=== PATIENT | male | born 1960 | race Caucasian/White ===

== ENCOUNTER 2020-05-23 23:53 | Inpatient (IN) | payer OTHER ==
[2020-05-24] VITALS (17 sets, daily range): BP systolic 122–253; BP diastolic 62–130
[2020-05-24] MEDS ORDERED: hydrALAZINE 20MG/ML 1ML VIAL (J0360 PER 20MG) IV ONE (04:20)
[2020-05-24] MEDS ORDERED: ACETAMINOPHEN TAB 650MG DOSE (2X325MG) PO PRN (04:20)
[2020-05-24 04:59] LABS: HEMATOCRIT 31.6 % (42.0-52.0); MEAN CORPUSCULAR HEMOGLOBIN 31.7 pg (27.0-33.0); MEAN CORPUSCULAR HGB CONC 31.6 g/dl (32.0-36.5); MEAN CORPUSCULAR VOLUME 100.3 fl (80.0-96.0); PLATELET COUNT, AUTOMATED 303 10^3/uL (150-450); RED BLOOD COUNT 3.15 10^6/uL (4.30-6.10); WHITE BLOOD COUNT 8.6 10^3/uL (4.0-10.0)
[2020-05-24] MEDS ORDERED: hydrALAZINE 20MG/ML 1ML VIAL (J0360 PER 20MG) IV PRN (05:00)
[2020-05-24 05:06] LABS: ABG BASE EXCESS -1.5 (-2.0-2.0); ABG HCO3 23.9 MEQ/L (22.0-26.0); ABG O2 SATURATION 93.2 % (95.0-99.0); ABG PARTIAL PRESSURE CO2 42.7 mmHg (35.0-45.0); ABG PARTIAL PRESSURE O2 74.3 mmHg (75.0-100.0); ABG STANDARD HCO3 23.2 MEQ/L (22.0-26.0); ABG TOTAL CO2 25.2 MEQ/L (23.0-31.0); ABG pH (ARTERIAL) 7.365 UNITS (7.350-7.450)
[2020-05-24] MEDS ORDERED: IPRATROPIUM 0.5MG/ALBUTEROL 2.5MG INH SOL UD 3ML (DUONEB) NEB PRN (05:20)
[2020-05-24 05:25] LABS: ALBUMIN 2.8 GM/DL (3.2-5.2); BILIRUBIN,TOTAL 0.5 MG/DL (0.2-1.0); CALCIUM LEVEL 8.8 MG/DL (8.8-10.2); CREATININE FOR GFR 2.58 MG/DL (0.70-1.30); GLOMERULAR FILTRATION RATE 27.1 (>49); POTASSIUM SERUM 3.9 MEQ/L (3.5-5.1); TOTAL PROTEIN 6.5 GM/DL (6.4-8.2)
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
[2020-05-24] MEDS ORDERED: GLUCOSE 4GM CHEW TABLET PO PRN (05:35)
[2020-05-24] MEDS ORDERED: GLUCAGON INJ 1MG VIAL SC PRN (05:35)
[2020-05-24] MEDS ORDERED: DEXTROSE 50% 50 ML SYRINGE IV PRN (05:35)
[2020-05-24] MEDS ORDERED: LISI20TA33 PO (05:51)
[2020-05-24] MEDS ORDERED: METO25TA PO (05:51)
[2020-05-24] MEDS ORDERED: MIRT-60 PO (05:51)
[2020-05-24] MEDS ORDERED: HEPARIN SOD (PORCINE) 5000UNITS/ML 1ML VIAL/SYRINGE SC SCH (06:00)
[2020-05-24] MEDS: FUROSEMIDE 100MG/10ML VIAL (J1940) IV SCH ×3 (06:06→21:00)
[2020-05-24] MEDS ORDERED: DULO1CAP4 PO (06:07)
[2020-05-24] MEDS ORDERED: PANT40TA29 PO (06:07)
[2020-05-24] MEDS ORDERED: VITMTA PO (06:07)
[2020-05-24] MEDS ORDERED: [UNRECOGNIZED DRUG - CODE] PO (06:07)
[2020-05-24] MEDS ORDERED: NITR4TASL SL (06:07)
[2020-05-24] MEDS ORDERED: BUSP5TA PO (06:07)
[2020-05-24] MEDS ORDERED: SENN1TAB41 PO (06:07)
[2020-05-24] MEDS ORDERED: LABE200T32 PO (06:07)
[2020-05-24] MEDS ORDERED: FISH1000 PO (06:07)
[2020-05-24] MEDS ORDERED: HYDR50TA PO (06:07)
[2020-05-24] MEDS ORDERED: EZET10TA21 PO (06:07)
[2020-05-24] MEDS ORDERED: TREL1AER INH (06:07)
[2020-05-24] MEDS ORDERED: ATOR80TA59 PO (06:07)
[2020-05-24] MEDS ORDERED: VITA200030 PO (06:07)
[2020-05-24] MEDS ORDERED: PROAAER10 INH (06:07)
[2020-05-24] MEDS ORDERED: CLONI1TA PO (06:07)
[2020-05-24] MEDS ORDERED: ASPI-161 PO (06:07)
[2020-05-24] MEDS ORDERED: BACL10TA2 PO (06:07)
[2020-05-24] MEDS ORDERED: ELIQ2.5T PO (06:07)
[2020-05-24] MEDS ORDERED: FURO80TA2 PO (06:07)
[2020-05-24] MEDS ORDERED: CLON0.5T2 PO (06:07)
--- NOTE | 2020-05-24 06:11 | REPVR ---
PROCEDURE INFORMATION: Exam: XR Chest Exam date and time: 05/24/2020 4:40 AM Age: 59 years old Clinical indication: Shortness of breath TECHNIQUE: Imaging protocol: XR of the chest. Views: 1 view. COMPARISON: No relevant prior studies available. FINDINGS: Lungs: Left base retrocardiac airspace opacity. Scattered bilateral pulmonary nodules. Pleural spaces: Unremarkable. No pleural effusion. No pneumothorax. Heart/Mediastinum: Cardiomegaly. Bones/joints: Multilevel degenerative disease of the thoracic spine IMPRESSION: Left base retrocardiac airspace opacity. Scattered bilateral pulmonary nodules. Electronically signed by: River Stewart On 05/24/2020 06:11:23 AM
[2020-05-24] MEDS ORDERED: PATIENT COMMENT (06:18)
[2020-05-24] MEDS: HumaLOG INSULIN (NovoLOG) PER UNIT SC SCH ×4 (07:42→20:58)
[2020-05-24] MEDS ORDERED: ALBUTEROL 90 MCG/ACT 8GM HFA INHALER INH PRN (07:50)
[2020-05-24] MEDS ORDERED: NITROGLYCERIN 0.4 MG SUBL TABLET SL PRN (07:50)
[2020-05-24] MEDS: LABETALOL 200 MG TAB PO SCH ×2 (08:15→20:58)
[2020-05-24] MEDS: DOCUSATE SODIUM 100MG CAPSULE PO SCH ×2 (08:15→20:56)
[2020-05-24] MEDS: busPIRone 5 MG TAB PO SCH ×3 (08:16→20:57)
[2020-05-24] MEDS: cloNIDine 0.1MG TABLET PO SCH ×2 (08:16→20:58)
[2020-05-24] MEDS: SENOKOT S TAB PO SCH (08:16)
[2020-05-24] MEDS: ASPIRIN 81MG ENTERIC TABLET PO SCH (08:16)
[2020-05-24] MEDS: BACLOFEN 10 MG TAB PO SCH ×2 (08:16→20:57)
[2020-05-24] MEDS: MULTIVITAMINS/MINERALS THERAP 1 TAB PO SCH (08:16)
[2020-05-24] MEDS: **hydrALAZINE** 50 MG TAB PO SCH ×3 (08:16→20:57)
[2020-05-24] MEDS: metOLazone 2.5 MG TAB PO SCH (08:38)
[2020-05-24] MEDS: APIXABAN 2.5 MG TAB (ELIQUIS) PO SCH ×2 (08:38→20:56)
[2020-05-24] MEDS: clonazePAM 0.5 MG TAB PO SCH ×3 (08:38→20:57)
[2020-05-24] MEDS: FERROUS GLUCONATE 324 MG TAB PO SCH ×2 (08:39→20:56)
[2020-05-24] MEDS ORDERED: PANTOPRAZOLE 40MG VIAL (C9113 PER 1) IV SCH (09:00)
--- NOTE | 2020-05-24 11:40 | IPNPDOC ---
Text Note Date of Service The patient was seen on 05/24/20. NOTE Subjective: Patient stated that his breathing markedly improved, currently his on the 2 L via nasal cannula. Objective: GENERAL APPEARANCE: NAD HEENT: no scleral icterus, plus JVD, EOMI CARDIOVASCULAR: Irregularly irregular LUNGS: Diminished lung sounds bilaterally ABDOMEN: soft & not tender w palpitation MUSCULOSKELETAL: +3 pitting edema bilaterally INTEGUMENT: no generalized pallor NEUROLOGICAL: cranial nerve function from 2-12 intact intact, follows commands, speech not dysarthric Assessment plan Patient is 59 years old male with past history of atrial fibrillation, coronary artery diseases, COPD, chronic kidney diseases, diabetes, hypertension presented hospital with increased shortness of breath secondary to CHF exacerbation. Acute hypoxemic respiratory failure Secondary to acute on chronic CHF exacerbation Continue oxygen by nasal cannula ABG was on in the morning and showed pH 7.3, CO2 42.7 PaO2 74.3 Acute on chronic CHF exacerbation Await echo BNP 19917 I's and O's Continue Lasix IV 60 mg daily Fluid restriction to 1500 mL Hypertensive urgency/HTN In the mornings his systolic blood pressure was 195 After morning pills blood pressure stable and normalized Continue home cardioprotective medication Atrial fibrillation Heart rate under control Continue oral targeted anti-Coblation COPD Lungs clear on the auscultation Not in acute exacerbation Continue inhalers Coronary artery diseases Continue cardioprotective medication Type 2 diabetes Diabetes diet Insulin sliding scale Glucose level under control Acute on chronic kidney failure Creatinine 2.5 Lisinopril on hold Continue to monitor Obstructive sleep apnea BiPAP overnight with home settings VS,Fishbone, I+O VS, Fishbone, I+O Laboratory Tests 05/24/20 04:47 05/24/20 04:48 Vital Signs Date Time Temp Pulse Resp B/P (MAP) Pulse Ox O2 Delivery O2 Flow Rate FiO2 05/24/20 09:00 100 20 131/70 (90) 93 Nasal Cannula 2.0 05/24/20 08:00 97.9 I&O- Last 24 Hours up to 6 AM 05/24/20 06:00 Intake Total 0 ml Output Total 300 ml Balance -300 ml BREN LOPEZ DO May 24, 2020 11:40
[2020-05-24] MEDS: MIRTAZAPINE 15 MG TAB PO SCH (20:56)
[2020-05-24] MEDS: ATORVASTATIN 20 MG TAB PO SCH (20:56)
[2020-05-24] MEDS: EZETIMIBE 10 MG TAB (ZETIA) PO SCH (20:57)
[2020-05-24] MEDS: DULoxetine 20 MG CAP (CYMBALTA) PO SCH (20:57)
[2020-05-25] MEDS: FUROSEMIDE 100MG/10ML VIAL (J1940) IV SCH ×3 (05:11→21:01)
[2020-05-25 06:00] VITALS: BP 148/70
[2020-05-25] MEDS: DOCUSATE SODIUM 100MG CAPSULE PO SCH ×2 (08:57→20:46)
[2020-05-25] MEDS: clonazePAM 0.5 MG TAB PO SCH ×3 (08:57→20:52)
[2020-05-25] MEDS: APIXABAN 2.5 MG TAB (ELIQUIS) PO SCH ×2 (08:57→20:51)
[2020-05-25] MEDS: busPIRone 5 MG TAB PO SCH ×3 (08:57→20:51)
[2020-05-25] MEDS: SENOKOT S TAB PO SCH (08:57)
[2020-05-25] MEDS: FERROUS GLUCONATE 324 MG TAB PO SCH ×2 (08:57→20:48)
[2020-05-25] MEDS: MULTIVITAMINS/MINERALS THERAP 1 TAB PO SCH (08:57)
[2020-05-25] MEDS: BACLOFEN 10 MG TAB PO SCH ×2 (08:57→20:51)
[2020-05-25] MEDS: ASPIRIN 81MG ENTERIC TABLET PO SCH (08:57)
[2020-05-25] MEDS: PANTOPRAZOLE 40MG TAB (PROTONIX) PO SCH (08:57)
[2020-05-25] MEDS: **hydrALAZINE** 50 MG TAB PO SCH ×3 (09:02→20:50)
[2020-05-25] MEDS: cloNIDine 0.1MG TABLET PO SCH ×2 (09:03→20:52)
[2020-05-25] MEDS: HumaLOG INSULIN (NovoLOG) PER UNIT SC SCH ×4 (09:04→20:52)
[2020-05-25 09:17] LABS: BASO # 0.1 10^3/uL (0.0-0.2); BASO % 0.6 % (0.0-1.0); EOS # 0.2 10^3/uL (0.0-0.5); EOS % 1.6 % (0.0-3.0); HEMOGLOBIN 9.2 g/dl (13.5-17.5); LYMPH # 1.4 10^3/uL (1.5-5.0); LYMPH % 10.7 % (24.0-44.0); MEAN CORPUSCULAR HEMOGLOBIN 31.1 pg (27.0-33.0); MEAN CORPUSCULAR HGB CONC 31.7 g/dl (32.0-36.5); MONO # 0.7 10^3/uL (0.0-0.8); MONO % 5.7 % (2.0-8.0); NEUTROPHILS # 10.3 10^3/uL (1.5-8.5); NEUTROPHILS % 80.9 % (36.0-66.0); PLATELET COUNT, AUTOMATED 331 10^3/uL (150-450); RED BLOOD COUNT 2.96 10^6/uL (4.30-6.10); WHITE BLOOD COUNT 12.7 10^3/uL (4.0-10.0)
[2020-05-25 09:52] LABS: ALBUMIN 2.9 GM/DL (3.2-5.2); BILIRUBIN,TOTAL 0.5 MG/DL (0.2-1.0); CREATININE FOR GFR 2.53 MG/DL (0.70-1.30); GLOMERULAR FILTRATION RATE 27.7 (>49); MAGNESIUM LEVEL 1.9 MG/DL (1.8-2.4)
--- NOTE | 2020-05-25 10:23 | ECHO ---
DATE OF PROCEDURE: 05/24/2020 Age: 59 Gender: Male Height: 170 cm Weight: 108 kg REFERRING PHYSICIAN: Ken Wagner MD. INDICATION: Congestive heart failure. MEASUREMENTS: IVS 1.3 cm LV 5.3 cm LVPW 1.3 cm LA 4.4 cm Aorta 3.3 cm FINDINGS: This study is of acceptable technical quality. The patient is in atrial fibrillation with controlled rate and wide QRS complex. Left ventricle is normal size. Mild left ventricular hypertrophy is noted. There is septal wall motion abnormality, but overall preserved left ventricular systolic function, estimated LVEF 50% to 55%. I suspect that the septal wall motion abnormality is related to underlying conductive system disease. Right ventricle appears normal size and systolic function. Both atria are at least mildly enlarged. The aortic valve is sclerotic. It has three cusps and overall preserved mobility. Mitral valve also exhibits mild degenerative abnormalities with mild thickening of the leaflets and mitral annular calcifications. Tricuspid valve appears normal. Pulmonic valve was not well seen. No pericardial effusion is noted. Inferior vena cava is dilated and there is reduced collapse with inspiration indicative of high central venous pressure. Aortic root and aortic arch appear normal. Abdominal aorta also appears normal. Doppler interrogation of the aortic valve reveals no stenosis and trace insufficiency. There is mild mitral and trace tricuspid insufficiency. Calculated pulmonary artery pressure is around 40 mmHg corresponding to moderate pulmonary hypertension. Diastolic function is inconclusive due to underlying atrial fibrillation. CONCLUSIONS: 1. Study is of acceptable technical quality. The patient is in atrial fibrillation with controlled ventricular rate and wide QRS complex. 2. Normal LV size with mild LVH, septal wall motion abnormality likely related to underlying conductive system disease, and overall estimated LVEF 55% to 55%. 3. Aortic sclerosis, but no stenosis and only trivial insufficiency. 4. Mild mitral insufficiency. 5. Trace tricuspid insufficiency. 6. Elevated central venous pressure and likely moderate pulmonary hypertension. MTDD
[2020-05-25] MEDS: LABETALOL 200 MG TAB PO SCH ×2 (12:31→20:49)
--- NOTE | 2020-05-25 12:34 | IPNPDOC ---
Text Note Date of Service The patient was seen on 05/25/20. NOTE Subjective: Patient stated that he feels better today, he noticed less swelling of both legs. No fever or chills Objective: GENERAL APPEARANCE: NAD HEENT: no scleral icterus, plus JVD, EOMI CARDIOVASCULAR: Irregularly irregular LUNGS: Diminished lung sounds bilaterally ABDOMEN: soft & not tender w palpitation MUSCULOSKELETAL: +2 pitting edema bilaterally INTEGUMENT: no generalized pallor NEUROLOGICAL: cranial nerve function from 2-12 intact intact, follows commands, speech not dysarthric Assessment plan Patient is 59 years old male with past history of atrial fibrillation, coronary artery diseases, COPD, chronic kidney diseases, diabetes, hypertension presented hospital with increased shortness of breath secondary to CHF exacerbation. Acute hypoxemic respiratory failure Secondary to acute on chronic CHF exacerbation Continue oxygen by nasal cannula ABG was on in the morning and showed pH 7.3, CO2 42.7 PaO2 74.3 on 05/24/20 Patient stated his breathing improved, he is on 2 L of oxygen, its his baseline Acute on chronic CHF exacerbation echo showed Normal LV size with mild LVH, septal wall motion abnormality likely related to underlying conductive system disease, and overall estimated LVEF 55% to 55%. Aortic sclerosis, but no stenosis and only trivial insufficiency. Mild mitral insufficiency. BNP 90263 on admission I's and O's Continue Lasix IV 60 mg tid with by mouth metolazone Fluid restriction to 1500 mL Urine output around 2.1 L for past 24 hours Hypertensive urgency/HTN In the mornings his systolic blood pressure was 190. I added Norvasc 10 mg to his regimen Continue home cardioprotective medication Atrial fibrillation Heart rate under control Continue Eliquis 2.5 mg twice a day COPD Lungs clear on the auscultation Not in acute exacerbation Continue inhalers Coronary artery diseases Continue cardioprotective medication Type 2 diabetes Diabetes diet Insulin sliding scale Glucose level under control Acute on chronic kidney failure Creatinine slightly improved Lisinopril on hold Continue to monitor Obstructive sleep apnea BiPAP overnight with home settings Magnus RODRIGUEZ, I+O [facility] I+O Laboratory Tests 05/25/20 08:39 Vital Signs Date Time Temp Pulse Resp B/P (MAP) Pulse Ox O2 Delivery O2 Flow Rate FiO2 05/25/20 09:03 190/80 05/25/20 06:00 97.7 96 18 97 Nasal Cannula 2.0 I&O- Last 24 Hours up to 6 AM 05/25/20 06:00 Intake Total 700 ml Output Total 1625 ml Balance -925 ml BREN LOPEZ DO May 25, 2020 12:34
[2020-05-25 14:00] VITALS: BP 150/76
[2020-05-25] MEDS: ATORVASTATIN 20 MG TAB PO SCH (20:46)
[2020-05-25] MEDS: MIRTAZAPINE 15 MG TAB PO SCH (20:49)
[2020-05-25] MEDS: DULoxetine 20 MG CAP (CYMBALTA) PO SCH (20:50)
[2020-05-25] MEDS: EZETIMIBE 10 MG TAB (ZETIA) PO SCH (20:51)
[2020-05-25 22:00] VITALS: BP 155/61
[2020-05-26] MEDS: FUROSEMIDE 100MG/10ML VIAL (J1940) IV SCH ×3 (05:30→21:31)
[2020-05-26 06:00] VITALS: BP 155/61
[2020-05-26 07:02] LABS: BASO # 0.1 10^3/uL (0.0-0.2); BASO % 0.9 % (0.0-1.0); EOS # 0.5 10^3/uL (0.0-0.5); EOS % 6.7 % (0.0-3.0); HEMATOCRIT 26.8 % (42.0-52.0); HEMOGLOBIN 8.5 g/dl (13.5-17.5); LYMPH # 1.2 10^3/uL (1.5-5.0); LYMPH % 15.1 % (24.0-44.0); MEAN CORPUSCULAR HEMOGLOBIN 31.5 pg (27.0-33.0); MEAN CORPUSCULAR HGB CONC 31.7 g/dl (32.0-36.5); MEAN CORPUSCULAR VOLUME 99.3 fl (80.0-96.0); MONO # 0.6 10^3/uL (0.0-0.8); MONO % 7.2 % (2.0-8.0); NEUTROPHILS # 5.4 10^3/uL (1.5-8.5); NEUTROPHILS % 69.7 % (36.0-66.0); PLATELET COUNT, AUTOMATED 301 10^3/uL (150-450); WHITE BLOOD COUNT 7.8 10^3/uL (4.0-10.0)
[2020-05-26 07:43] LABS: ALBUMIN 2.5 GM/DL (3.2-5.2); BILIRUBIN,TOTAL 0.7 MG/DL (0.2-1.0); CALCIUM LEVEL 9.2 MG/DL (8.8-10.2); CREATININE FOR GFR 2.35 MG/DL (0.70-1.30); GLOMERULAR FILTRATION RATE 30.2 (>49); MAGNESIUM LEVEL 1.9 MG/DL (1.8-2.4); POTASSIUM SERUM 3.6 MEQ/L (3.5-5.1); TOTAL PROTEIN 5.8 GM/DL (6.4-8.2)
[2020-05-26] MEDS: SENOKOT S TAB PO SCH (08:37)
[2020-05-26] MEDS: PANTOPRAZOLE 40MG TAB (PROTONIX) PO SCH (08:37)
[2020-05-26] MEDS: FERROUS GLUCONATE 324 MG TAB PO SCH ×2 (08:37→21:31)
[2020-05-26] MEDS: clonazePAM 0.5 MG TAB PO SCH ×3 (08:38→21:31)
[2020-05-26] MEDS: MULTIVITAMINS/MINERALS THERAP 1 TAB PO SCH (08:38)
[2020-05-26] MEDS: APIXABAN 2.5 MG TAB (ELIQUIS) PO SCH ×2 (08:38→21:31)
[2020-05-26] MEDS: LABETALOL 200 MG TAB PO SCH ×2 (08:38→21:32)
[2020-05-26] MEDS: DOCUSATE SODIUM 100MG CAPSULE PO SCH ×2 (08:38→21:31)
[2020-05-26] MEDS: cloNIDine 0.1MG TABLET PO SCH ×2 (08:39→21:36)
[2020-05-26] MEDS: busPIRone 5 MG TAB PO SCH ×3 (08:39→21:32)
[2020-05-26] MEDS: ASPIRIN 81MG ENTERIC TABLET PO SCH (08:39)
[2020-05-26] MEDS: BACLOFEN 10 MG TAB PO SCH ×2 (08:39→21:32)
[2020-05-26] MEDS: **hydrALAZINE** 50 MG TAB PO SCH ×3 (08:39→21:32)
[2020-05-26] MEDS: HumaLOG INSULIN (NovoLOG) PER UNIT SC SCH ×4 (08:41→20:40)
[2020-05-26 09:09] LABS: PERCENT SATURATION 17.3 % (19.7-50.0)
--- NOTE | 2020-05-26 12:12 | IPNPDOC ---
Text Note Date of Service The patient was seen on 05/26/20. NOTE Subjective: No any acute events overnight. Patient stated he feels better today, his breathing better and he noticed less leg swelling Objective: GENERAL APPEARANCE: NAD HEENT: no scleral icterus, plus JVD, EOMI CARDIOVASCULAR: Irregularly irregular LUNGS: Diminished lung sounds bilaterally ABDOMEN: soft & not tender w palpitation MUSCULOSKELETAL: +2 pitting edema bilaterally INTEGUMENT: no generalized pallor NEUROLOGICAL: cranial nerve function from 2-12 intact intact, follows commands, speech not dysarthric Assessment plan Patient is 59 years old male with past history of atrial fibrillation, coronary artery diseases, COPD, chronic kidney diseases, diabetes, hypertension presented hospital with increased shortness of breath secondary to CHF exacerbation. Acute hypoxemic respiratory failure Secondary to acute on chronic CHF exacerbation Continue oxygen by nasal cannula ABG was on in the morning and showed pH 7.3, CO2 42.7 PaO2 74.3 on 05/24/20 Patient stated his breathing improved, he is on 2 L of oxygen, its his baseline Acute on chronic Diastolic CHF exacerbation echo showed Normal LV size with mild LVH, septal wall motion abnormality likely related to underlying conductive system disease, and overall estimated LVEF 55% to 55%. Aortic sclerosis, but no stenosis and only trivial insufficiency. Mild mitral insufficiency. BNP 62453 on admission I's and O's Continue Lasix IV 60 mg tid with by mouth metolazone Fluid restriction to 1500 mL Urine output around 1.2 L for past 12 hours Hypertensive urgency/HTN In the mornings his systolic blood pressure was 180. Continue Norvasc 10 mg in the morning with hydralazine 50 mg 3 times a day Atrial fibrillation Heart rate under control Continue Eliquis 2.5 mg twice a day COPD Lungs clear on the auscultation Not in acute exacerbation Continue inhalers Coronary artery diseases Continue cardioprotective medication Type 2 diabetes Diabetes diet Insulin sliding scale Glucose level under control Acute on chronic kidney failure Creatinine slightly improved Lisinopril on hold Continue to monitor Obstructive sleep apnea BiPAP overnight with home settings Normocytic anemia Secondary to anemia of chronic diseases with chronic kidney failure Continue iron supplements We'll check stool for occult blood VS,Fishbone, I+O VS, Fishbone, I+O Laboratory Tests 05/26/20 06:16 Vital Signs Date Time Temp Pulse Resp B/P (MAP) Pulse Ox O2 Delivery O2 Flow Rate FiO2 05/26/20 08:40 87 183/107 05/26/20 06:00 97.8 18 96 Nasal Cannula 2.0 I&O- Last 24 Hours up to 6 AM 05/26/20 06:00 Intake Total 1055 ml Output Total 5600 ml Balance -4545 ml BREN LOPEZ DO May 26, 2020 12:12
[2020-05-26] MEDS ORDERED: POTASSIUM CHLORIDE 10 MEQ SR TABLET PO ONE (12:30)
[2020-05-26 13:58] LABS: FOLATE 16.8 NG/ML
[2020-05-26 14:00] VITALS: BP 152/58
[2020-05-26 19:03] VITALS: BP 159/73
[2020-05-26] MEDS: ATORVASTATIN 20 MG TAB PO SCH (21:31)
[2020-05-26] MEDS: MIRTAZAPINE 15 MG TAB PO SCH (21:31)
[2020-05-26] MEDS: DULoxetine 20 MG CAP (CYMBALTA) PO SCH (21:32)
[2020-05-26] MEDS: EZETIMIBE 10 MG TAB (ZETIA) PO SCH (21:35)
[2020-05-26 22:00] VITALS: BP 164/76
[2020-05-27] VITALS (8 sets, daily range): BP systolic 122–180; BP diastolic 62–90
[2020-05-27] MEDS: FUROSEMIDE 100MG/10ML VIAL (J1940) IV SCH ×3 (05:00→21:10)
[2020-05-27 06:04] LABS: BASO % 0.5 % (0.0-1.0); EOS # 0.5 10^3/uL (0.0-0.5); EOS % 6.9 % (0.0-3.0); HEMATOCRIT 25.1 % (42.0-52.0); HEMOGLOBIN 8.1 g/dl (13.5-17.5); LYMPH # 0.9 10^3/uL (1.5-5.0); LYMPH % 11.5 % (24.0-44.0); MEAN CORPUSCULAR HEMOGLOBIN 31.3 pg (27.0-33.0); MEAN CORPUSCULAR HGB CONC 32.3 g/dl (32.0-36.5); MEAN CORPUSCULAR VOLUME 96.9 fl (80.0-96.0); MONO # 0.6 10^3/uL (0.0-0.8); MONO % 7.2 % (2.0-8.0); NEUTROPHILS # 5.6 10^3/uL (1.5-8.5); NEUTROPHILS % 73.4 % (36.0-66.0); PLATELET COUNT, AUTOMATED 300 10^3/uL (150-450); RED BLOOD COUNT 2.59 10^6/uL (4.30-6.10); WHITE BLOOD COUNT 7.6 10^3/uL (4.0-10.0)
[2020-05-27 06:26] LABS: ALBUMIN 2.3 GM/DL (3.2-5.2); BILIRUBIN,TOTAL 0.6 MG/DL (0.2-1.0); CALCIUM LEVEL 9.2 MG/DL (8.8-10.2); CREATININE FOR GFR 2.09 MG/DL (0.70-1.30); GLOMERULAR FILTRATION RATE 34.5 (>49); MAGNESIUM LEVEL 1.8 MG/DL (1.8-2.4); POTASSIUM SERUM 3.4 MEQ/L (3.5-5.1); TOTAL PROTEIN 5.3 GM/DL (6.4-8.2)
[2020-05-27] MEDS ORDERED: POTASSIUM CHLORIDE 10 MEQ SR TABLET PO ONE (08:00)
[2020-05-27] MEDS: HumaLOG INSULIN (NovoLOG) PER UNIT SC SCH ×4 (08:10→21:00)
[2020-05-27] MEDS: SENOKOT S TAB PO SCH (08:11)
[2020-05-27] MEDS: FERROUS GLUCONATE 324 MG TAB PO SCH ×2 (08:11→21:06)
[2020-05-27] MEDS: PANTOPRAZOLE 40MG TAB (PROTONIX) PO SCH (08:11)
[2020-05-27] MEDS: BACLOFEN 10 MG TAB PO SCH ×2 (08:11→21:08)
[2020-05-27] MEDS: BISACODYL 5 MG TAB PO SCH (08:11)
[2020-05-27] MEDS: MULTIVITAMINS/MINERALS THERAP 1 TAB PO SCH (08:11)
[2020-05-27] MEDS: DOCUSATE SODIUM 100MG CAPSULE PO SCH ×2 (08:11→21:06)
[2020-05-27] MEDS: busPIRone 5 MG TAB PO SCH ×3 (08:11→21:09)
[2020-05-27] MEDS: ASPIRIN 81MG ENTERIC TABLET PO SCH (08:12)
[2020-05-27] MEDS: cloNIDine 0.1MG TABLET PO SCH ×2 (08:12→21:08)
[2020-05-27] MEDS: LABETALOL 200 MG TAB PO SCH ×2 (08:12→21:07)
[2020-05-27] MEDS: clonazePAM 0.5 MG TAB PO SCH ×3 (08:12→21:09)
[2020-05-27] MEDS: **hydrALAZINE** 50 MG TAB PO SCH ×3 (08:13→21:04)
[2020-05-27] MEDS: IRON POLYSAC (NIFEREX) 150 MG CAP PO SCH ×2 (08:29→21:07)
--- NOTE | 2020-05-27 10:39 | IPNPDOC ---
Text Note Date of Service The patient was seen on 05/27/20. NOTE Subjective: No any acute events overnight. Patient denies fever, chills, nausea, vomiting chest pain, palpitations Objective: GENERAL APPEARANCE: NAD HEENT: no scleral icterus, plus JVD, EOMI CARDIOVASCULAR: Irregularly irregular LUNGS: Diminished lung sounds bilaterally ABDOMEN: soft & not tender w palpitation MUSCULOSKELETAL: +2 pitting edema bilaterally INTEGUMENT: no generalized pallor NEUROLOGICAL: cranial nerve function from 2-12 intact intact, follows commands, speech not dysarthric Assessment plan Patient is 59 years old male with past history of atrial fibrillation, coronary artery diseases, COPD, chronic kidney diseases, diabetes, hypertension presented hospital with increased shortness of breath secondary to CHF exacerbation. Acute hypoxemic respiratory failure Secondary to acute on chronic CHF exacerbation Continue oxygen by nasal cannula ABG was on in the morning and showed pH 7.3, CO2 42.7 PaO2 74.3 on 05/24/20 Patient stated his breathing improved, he is on 2 L of oxygen, its his baseline Resolved Acute on chronic Diastolic CHF exacerbation echo showed Normal LV size with mild LVH, septal wall motion abnormality likely related to underlying conductive system disease, and overall estimated LVEF 55% to 55%. Aortic sclerosis, but no stenosis and only trivial insufficiency. Mild mitral insufficiency. BNP 40495 on admission I's and O's Continue Lasix IV 60 mg tid with by mouth metolazone Fluid restriction to 1500 mL Patient has a good urine output overnight around 2 L Hypertensive urgency/HTN Improved Continue Norvasc 10 mg in the morning with hydralazine 50 mg 3 times a day Atrial fibrillation Heart rate under control Continue Eliquis 2.5 mg twice a day COPD Lungs clear on the auscultation Not in acute exacerbation Continue inhalers Coronary artery diseases Continue cardioprotective medication Type 2 diabetes Diabetes diet Insulin sliding scale Glucose level under control Acute on chronic kidney failure Creatinine slightly improved Lisinopril on hold Continue to monitor Obstructive sleep apnea BiPAP overnight with home settings Normocytic anemia Secondary to anemia of chronic diseases with chronic kidney failure Iron 49 Continue iron supplements Await stool for occult blood Today hemoglobin dropped to 8.1. I will give one unit of blood. Eliquis on hold VS,Fishbone, I+O VS, Fishbone, I+O Laboratory Tests 05/27/20 05:25 Vital Signs Date Time Temp Pulse Resp B/P (MAP) Pulse Ox O2 Delivery O2 Flow Rate FiO2 05/27/20 08:13 95 176/92 05/27/20 06:00 97.5 18 94 Nasal Cannula 2.0 I&O- Last 24 Hours up to 6 AM 05/27/20 06:00 Intake Total 1500 ml Output Total 6550 ml Balance -5050 ml BREN LOPEZ DO May 27, 2020 10:39
[2020-05-27 15:15] LABS: HEMATOCRIT 27.4 % (42.0-52.0); HEMOGLOBIN 9.2 g/dl (13.5-17.5)
[2020-05-27 20:03] LABS: HEMATOCRIT 27.9 % (42.0-52.0); HEMOGLOBIN 9.2 g/dl (13.5-17.5)
[2020-05-27] MEDS: MIRTAZAPINE 15 MG TAB PO SCH (21:03)
[2020-05-27] MEDS: ATORVASTATIN 20 MG TAB PO SCH (21:05)
[2020-05-27] MEDS: DULoxetine 20 MG CAP (CYMBALTA) PO SCH (21:06)
[2020-05-27] MEDS: EZETIMIBE 10 MG TAB (ZETIA) PO SCH (21:08)
[2020-05-28 02:16] LABS: HEMATOCRIT 26.6 % (42.0-52.0); HEMOGLOBIN 8.8 g/dl (13.5-17.5)
[2020-05-28 06:00] VITALS: BP 168/68
[2020-05-28] MEDS: FUROSEMIDE 100MG/10ML VIAL (J1940) IV SCH (06:08)
[2020-05-28 07:29] LABS: BASO # 0.1 10^3/uL (0.0-0.2); BASO % 0.9 % (0.0-1.0); EOS # 0.5 10^3/uL (0.0-0.5); EOS % 7.9 % (0.0-3.0); HEMATOCRIT 27.2 % (42.0-52.0); HEMOGLOBIN 8.8 g/dl (13.5-17.5); LYMPH % 16.9 % (24.0-44.0); MEAN CORPUSCULAR HGB CONC 32.4 g/dl (32.0-36.5); MEAN CORPUSCULAR VOLUME 95.8 fl (80.0-96.0); MONO # 0.5 10^3/uL (0.0-0.8); MONO % 8.3 % (2.0-8.0); NEUTROPHILS # 3.8 10^3/uL (1.5-8.5); NEUTROPHILS % 65.7 % (36.0-66.0); PLATELET COUNT, AUTOMATED 327 10^3/uL (150-450); RED BLOOD COUNT 2.84 10^6/uL (4.30-6.10); WHITE BLOOD COUNT 5.8 10^3/uL (4.0-10.0)
[2020-05-28 07:52] LABS: ALBUMIN 2.3 GM/DL (3.2-5.2); BILIRUBIN,TOTAL 0.6 MG/DL (0.2-1.0); CALCIUM LEVEL 8.5 MG/DL (8.8-10.2); CREATININE FOR GFR 1.97 MG/DL (0.70-1.30); POTASSIUM SERUM 3.8 MEQ/L (3.5-5.1); TOTAL PROTEIN 4.8 GM/DL (6.4-8.2)
[2020-05-28] MEDS: HumaLOG INSULIN (NovoLOG) PER UNIT SC SCH ×4 (08:19→21:00)
[2020-05-28] MEDS: **hydrALAZINE** 50 MG TAB PO SCH ×3 (08:22→21:37)
[2020-05-28] MEDS: busPIRone 5 MG TAB PO SCH ×3 (08:22→21:37)
[2020-05-28] MEDS: DOCUSATE SODIUM 100MG CAPSULE PO SCH ×2 (08:23→21:36)
[2020-05-28] MEDS: ASPIRIN 81MG ENTERIC TABLET PO SCH (08:23)
[2020-05-28] MEDS: BISACODYL 5 MG TAB PO SCH (08:23)
[2020-05-28] MEDS: clonazePAM 0.5 MG TAB PO SCH ×3 (08:23→21:36)
[2020-05-28] MEDS: FERROUS GLUCONATE 324 MG TAB PO SCH ×2 (08:23→21:36)
[2020-05-28] MEDS: POTASSIUM CHLORIDE 10 MEQ SR TABLET PO SCH (08:24)
[2020-05-28] MEDS: BACLOFEN 10 MG TAB PO SCH ×2 (08:24→21:37)
[2020-05-28] MEDS: IRON POLYSAC (NIFEREX) 150 MG CAP PO SCH (08:24)
[2020-05-28] MEDS: LABETALOL 200 MG TAB PO SCH ×2 (08:25→21:36)
[2020-05-28] MEDS: PANTOPRAZOLE 40MG TAB (PROTONIX) PO SCH (08:26)
[2020-05-28] MEDS: SENOKOT S TAB PO SCH (08:26)
[2020-05-28] MEDS: MULTIVITAMINS/MINERALS THERAP 1 TAB PO SCH (08:26)
[2020-05-28] MEDS: metOLazone 2.5 MG TAB PO SCH (08:26)
[2020-05-28] MEDS: cloNIDine 0.1MG TABLET PO SCH ×2 (09:27→21:39)
[2020-05-28 14:00] VITALS: BP 146/70
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
[2020-05-28] MEDS ORDERED: FUROSEMIDE 100MG/10ML VIAL (J1940) IV SCH (17:00)
[2020-05-28] MEDS: SYMBICORT 160/4.5MCG INHALER 6GM INH SCH (19:33)
[2020-05-28] MEDS: MIRTAZAPINE 15 MG TAB PO SCH (21:37)
[2020-05-28] MEDS: DULoxetine 20 MG CAP (CYMBALTA) PO SCH (21:37)
[2020-05-28] MEDS: ATORVASTATIN 20 MG TAB PO SCH (21:37)
[2020-05-28] MEDS: EZETIMIBE 10 MG TAB (ZETIA) PO SCH (21:38)
[2020-05-28 22:00] VITALS: BP 134/63
[2020-05-29 06:00] VITALS: BP 127/56
[2020-05-29 06:24] LABS: BASO # 0.1 10^3/uL (0.0-0.2); BASO % 0.9 % (0.0-1.0); EOS # 0.5 10^3/uL (0.0-0.5); EOS % 8.6 % (0.0-3.0); HEMATOCRIT 29.1 % (42.0-52.0); HEMOGLOBIN 9.7 g/dl (13.5-17.5); LYMPH # 0.9 10^3/uL (1.5-5.0); LYMPH % 16.3 % (24.0-44.0); MEAN CORPUSCULAR HEMOGLOBIN 32.2 pg (27.0-33.0); MEAN CORPUSCULAR HGB CONC 33.3 g/dl (32.0-36.5); MEAN CORPUSCULAR VOLUME 96.7 fl (80.0-96.0); MONO # 0.4 10^3/uL (0.0-0.8); MONO % 7.7 % (2.0-8.0); NEUTROPHILS # 3.7 10^3/uL (1.5-8.5); NEUTROPHILS % 66.3 % (36.0-66.0); PLATELET COUNT, AUTOMATED 355 10^3/uL (150-450); RED BLOOD COUNT 3.01 10^6/uL (4.30-6.10); WHITE BLOOD COUNT 5.6 10^3/uL (4.0-10.0)
[2020-05-29 06:55] LABS: ALBUMIN 2.8 GM/DL (3.2-5.2); BILIRUBIN,TOTAL 0.7 MG/DL (0.2-1.0); CALCIUM LEVEL 9.3 MG/DL (8.8-10.2); CREATININE FOR GFR 2.17 MG/DL (0.70-1.30); GLOMERULAR FILTRATION RATE 33.1 (>49); MAGNESIUM LEVEL 2.3 MG/DL (1.8-2.4); POTASSIUM SERUM 3.9 MEQ/L (3.5-5.1); TOTAL PROTEIN 5.5 GM/DL (6.4-8.2)
[2020-05-29] MEDS: HumaLOG INSULIN (NovoLOG) PER UNIT SC SCH ×4 (07:34→21:00)
[2020-05-29] MEDS: SYMBICORT 160/4.5MCG INHALER 6GM INH SCH ×2 (08:31→19:55)
[2020-05-29] MEDS: TIOTROPIUM INHALER/CAPSULE (SPIRIVA) INH SCH (08:31)
[2020-05-29] MEDS: **hydrALAZINE** 50 MG TAB PO SCH ×3 (08:45→21:49)
[2020-05-29] MEDS: busPIRone 5 MG TAB PO SCH ×3 (08:45→21:47)
[2020-05-29] MEDS: cloNIDine 0.1MG TABLET PO SCH ×2 (08:46→21:49)
[2020-05-29] MEDS: FERROUS GLUCONATE 324 MG TAB PO SCH ×2 (08:46→21:47)
[2020-05-29] MEDS: clonazePAM 0.5 MG TAB PO SCH ×3 (08:46→21:48)
[2020-05-29] MEDS: ASPIRIN 81MG ENTERIC TABLET PO SCH (08:46)
[2020-05-29] MEDS: DOCUSATE SODIUM 100MG CAPSULE PO SCH ×2 (08:46→21:44)
[2020-05-29] MEDS: BISACODYL 5 MG TAB PO SCH (08:46)
[2020-05-29] MEDS: BACLOFEN 10 MG TAB PO SCH ×2 (08:46→21:48)
[2020-05-29] MEDS: POTASSIUM CHLORIDE 10 MEQ SR TABLET PO SCH (08:47)
[2020-05-29] MEDS: MULTIVITAMINS/MINERALS THERAP 1 TAB PO SCH (08:47)
[2020-05-29] MEDS: PANTOPRAZOLE 40MG TAB (PROTONIX) PO SCH (08:47)
[2020-05-29] MEDS: LABETALOL 200 MG TAB PO SCH ×2 (08:47→21:50)
[2020-05-29] MEDS: SENOKOT S TAB PO SCH (08:47)
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
[2020-05-29 14:00] VITALS: BP 132/58
[2020-05-29] MEDS: MIRTAZAPINE 15 MG TAB PO SCH (21:45)
[2020-05-29] MEDS: ATORVASTATIN 20 MG TAB PO SCH (21:46)
[2020-05-29] MEDS: DULoxetine 20 MG CAP (CYMBALTA) PO SCH (21:46)
[2020-05-29] MEDS: EZETIMIBE 10 MG TAB (ZETIA) PO SCH (21:48)
[2020-05-29 22:00] VITALS: BP 148/70
[2020-05-30 06:00] VITALS: BP 144/70
[2020-05-30 06:20] LABS: BASO % 0.7 % (0.0-1.0); EOS # 0.5 10^3/uL (0.0-0.5); EOS % 8.5 % (0.0-3.0); HEMOGLOBIN 8.8 g/dl (13.5-17.5); LYMPH % 18.1 % (24.0-44.0); MEAN CORPUSCULAR HEMOGLOBIN 31.7 pg (27.0-33.0); MEAN CORPUSCULAR HGB CONC 32.6 g/dl (32.0-36.5); MEAN CORPUSCULAR VOLUME 97.1 fl (80.0-96.0); MONO # 0.5 10^3/uL (0.0-0.8); MONO % 9.8 % (2.0-8.0); NEUTROPHILS # 3.4 10^3/uL (1.5-8.5); NEUTROPHILS % 62.5 % (36.0-66.0); PLATELET COUNT, AUTOMATED 353 10^3/uL (150-450); RED BLOOD COUNT 2.78 10^6/uL (4.30-6.10); WHITE BLOOD COUNT 5.4 10^3/uL (4.0-10.0)
[2020-05-30 06:30] LABS: CALCIUM LEVEL 8.9 MG/DL (8.8-10.2); CREATININE FOR GFR 2.21 MG/DL (0.70-1.30); GLOMERULAR FILTRATION RATE 32.4 (>49)
[2020-05-30 06:31] LABS: ALBUMIN 2.6 GM/DL (3.2-5.2); BILIRUBIN,TOTAL 0.7 MG/DL (0.2-1.0); MAGNESIUM LEVEL 2.4 MG/DL (1.8-2.4); TOTAL PROTEIN 5.4 GM/DL (6.4-8.2)
[2020-05-30] MEDS: HumaLOG INSULIN (NovoLOG) PER UNIT SC SCH ×2 (07:30→12:39)
[2020-05-30] MEDS: BISACODYL 5 MG TAB PO SCH (08:03)
[2020-05-30] MEDS: MULTIVITAMINS/MINERALS THERAP 1 TAB PO SCH (08:03)
[2020-05-30] MEDS: SENOKOT S TAB PO SCH (08:03)
[2020-05-30] MEDS: busPIRone 5 MG TAB PO SCH (08:03)
[2020-05-30] MEDS: FERROUS GLUCONATE 324 MG TAB PO SCH (08:03)
[2020-05-30] MEDS: POTASSIUM CHLORIDE 10 MEQ SR TABLET PO SCH (08:04)
[2020-05-30] MEDS: DOCUSATE SODIUM 100MG CAPSULE PO SCH (08:04)
[2020-05-30] MEDS: ASPIRIN 81MG ENTERIC TABLET PO SCH (08:04)
[2020-05-30] MEDS: BACLOFEN 10 MG TAB PO SCH (08:04)
[2020-05-30] MEDS: **hydrALAZINE** 50 MG TAB PO SCH (08:04)
[2020-05-30] MEDS: PANTOPRAZOLE 40MG TAB (PROTONIX) PO SCH (08:04)
[2020-05-30] MEDS: clonazePAM 0.5 MG TAB PO SCH (08:04)
[2020-05-30] MEDS: LABETALOL 200 MG TAB PO SCH (08:05)
[2020-05-30 08:18] VITALS: BP 144/70
[2020-05-30] MEDS: cloNIDine 0.1MG TABLET PO SCH (08:18)
[2020-05-30] MEDS: TIOTROPIUM INHALER/CAPSULE (SPIRIVA) INH SCH (08:20)
[2020-05-30] MEDS: SYMBICORT 160/4.5MCG INHALER 6GM INH SCH (08:20)
[2020-05-30] MEDS: APIXABAN 2.5 MG TAB (ELIQUIS) PO SCH (09:52)
[2020-05-30] MEDS ORDERED: AMLO1TAB25 PO (12:39)
[2020-05-30] MEDS ORDERED: TORS20TA2 PO (12:39)
[2020-05-30 14:00] VITALS: BP 131/58
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
== END 2020-05-30 14:36 | disposition home or self-care (01) | DRG 194 ==
LOC: M ICU 05-24 03:55 → M MSPAV 05-24 14:31
PROVIDERS: ADMIT Family Medicine; ATTEND Internal Medicine Nephrology
DX: I13.0 Hypertensive heart and chronic kidney disease with heart failure and stage 1 through stage 4 chronic kidney disease, or unspecified chronic kidney disease (principal); J96.21 Acute and chronic respiratory failure with hypoxia; N17.9 Acute kidney failure, unspecified; D63.1 Anemia in chronic kidney disease; E11.9 Type 2 diabetes mellitus without complications; N18.30 Chronic kidney disease, stage 3 unspecified; Z79.01 Long term (current) use of anticoagulants; Z95.2 Presence of prosthetic heart valve; I16.0 Hypertensive urgency; I48.91 Unspecified atrial fibrillation; I25.10 Atherosclerotic heart disease of native coronary artery without angina pectoris; J44.9 Chronic obstructive pulmonary disease, unspecified; F41.9 Anxiety disorder, unspecified; F32.9 Major depressive disorder, single episode, unspecified; M79.18 Myalgia, other site; G47.33 Obstructive sleep apnea (adult) (pediatric); Z79.82 Long term (current) use of aspirin; Z79.899 Other long term (current) drug therapy; Z87.891 Personal history of nicotine dependence; I50.33 Acute on chronic diastolic (congestive) heart failure